=== PATIENT | male | born 1950 | race Caucasian/White ===

== ENCOUNTER 2016-05-28 21:31 | Inpatient (IN) | payer OTHER ==
[~2016-05-28] VITALS: Ht 185.4 cm; Wt 183.2 kg
[~2016-05-28 21:31] MED LIST: ANDROGEL75 GM TD; ASPIRIN81 M2 PO; CLEOCIN150 MG PO; CLINDAMYCIN HC300 MG PO; COMPLETE MULTI1 EAC1 PO; FLOVENT DISKUS1 DIS2 IH; FOLIC ACID0.4 MG PO; Folic Acid PO; HORIZANT300 MG PO; HUMIRA40 MG/0.8 SQ; LEVAQUIN500 MG PO; LOPRESSOR50 MG PO; LYRICA150 MG PO; METHOTREXATE2.5 MG PO; PRAVACHOL40 MG PO; PRINIVIL20 MG PO; PROAIR HFA8.5 GM IH; Percocet 5/325,Endoc PO; Rocephin IV; Vitamin D PO; ZOLOFT100 MG PO
[2016-05-28 21:57] LABS: HEMATOCRIT 45.6 % (38.0-50.0); MCH 30.2 PG (29.0-34.0); MCHC 33.8 G/DL (30.0-36.0); MCV 89.4 FL (86-99); MEAN PLAT.VOLUME 10.7 uM^3 (9.0-12.4); PLATELET COUNT 275 K/uL (156-360); RBC DIS.WIDTH-CV 15.1 % (11.8-14.6); RBC DIS.WIDTH-SD 48.2 % (39-53); WHITE BLOOD COUNT 15.6 K/uL (4.1-10.2)
[2016-05-28 22:18] LABS: TROP-I INTERPRETATION NEGATIVE; TROPONIN-I < 0.01 ng/mL (0.0-0.30)
[2016-05-28 22:27] LABS: CREATININE 1.7 mg/dL (0.6-1.3); POTASSIUM 4.9 mEq/L (3.7-5.4)
[2016-05-28 22:35] LABS: CHLORIDE 103 mEq/L (99-109); POTASSIUM 5.5 mEq/L (3.7-5.4); SODIUM 141 mEq/L (136-147)
[2016-05-28 22:37] LABS: GLUCOSE 130 mg/dL (70-99)
[2016-05-28 22:39] LABS: ANION GAP 11 MEQ/L (2-14)
[2016-05-28 22:41] LABS: GFR ESTIMATE (CALCULATED) 38 mL/min/
[2016-05-28 22:42] LABS: UREA NITROGEN (BUN) 29 mg/dL (9-23)
[2016-05-28] MEDS ORDERED: ANDROGEL75 GM TD (22:43)
[2016-05-28] MEDS ORDERED: VITAMIN B-12500 MC5 PO (22:44)
[2016-05-28] MEDS ORDERED: PERCOCET 10/1 TABLET PO (22:44)
[2016-05-28] MEDS ORDERED: CYMBALTA60 MG PO (22:44)
[2016-05-28] MEDS ORDERED: LYRICA150 MG PO ×2 (22:44→22:45)
[2016-05-28] MEDS ORDERED: VITAMIN D31000 UNIT PO (22:45)
[2016-05-28] MEDS ORDERED: FLOMAX0.4 MG PO (22:45)
[2016-05-29 00:12] LABS: EOSINOPHIL COUNT 0.2 K/uL (0-0.3); IMMATURE GRANULOCYTE (%) 1.1 % (0.0-0.7); IMMATURE GRANULOCYTE COUNT 1.7 K/uL; LYMPHOCYTE COUNT 2.7 K/uL (1.0-2.8); MONOCYTE (%) 9.3 % (3-12); MONOCYTE COUNT 1.5 K/uL (0-0.8); NEUTROPHIL (%) 70.8 % (45-76)
[2016-05-29 02:21] VITALS: BP 140/71
[2016-05-29 06:40] LABS: GFR ESTIMATE (CALCULATED) 54 mL/min/
[2016-05-29 08:32] LABS: HEMATOCRIT 41.9 % (38.0-50.0); MCH 29.9 PG (29.0-34.0); MCHC 31.5 G/DL (30.0-36.0); RBC DIS.WIDTH-CV 15.2 % (11.8-14.6); RBC DIS.WIDTH-SD 52.1 % (39-53); RED BLOOD COUNT 4.42 M/uL (4.00-5.50); WHITE BLOOD COUNT 12.1 K/uL (4.1-10.2)
[2016-05-29 08:36] LABS: MCV 94.8 FL (86-99)
[2016-05-29 08:38] LABS: ANION GAP 9 MEQ/L (2-14); CHLORIDE 103 MEQ/L (99-109); GLUCOSE 121 mg/dL (70-99); POTASSIUM 4.9 MEQ/L (3.7-5.4); SODIUM 138 MEQ/L (136-147); UREA NITROGEN (BUN) 29 mg/dL (9-23)
[2016-05-29 09:10] VITALS: BP 119/58
[2016-05-29 11:46] VITALS: BP 119/64
[2016-05-29 11:48] LABS: PLATELET COUNT 186 K/uL (156-360)
[2016-05-29 15:25] VITALS: BP 129/63
[2016-05-29 19:18] VITALS: BP 131/61
[2016-05-29 20:20] LABS: ADD MIUA? NO; BILIRUBIN NEGATIVE; BLOOD NEGATIVE; COLOR YELLOW ((YELLOW)); GLUCOSE (STRIP) NEGATIVE; KETONES NEGATIVE; LEUKOCYTES NEGATIVE; NITRITE NEGATIVE; PROTEIN (STRIP) NEGATIVE; SPECIFIC GRAVITY 1.009 (1.000-1.030); UROBILINOGEN 0.2 MG/DL (0.2-1.0)
[2016-05-29 20:22] LABS: UCUL ADDED? NO
[2016-05-30] VITALS: BP 140/79
[2016-05-30 04:00] VITALS: BP 139/65
[2016-05-30 05:32] LABS: EOSINOPHIL (%) 2.2 % (0-5); EOSINOPHIL COUNT 0.2 K/uL (0-0.3); HEMATOCRIT 42.4 % (38.0-50.0); IMMATURE GRANULOCYTE COUNT 0.1 K/uL; LYMPHOCYTE COUNT 2.4 K/uL (1.0-2.8); MCH 30.6 PG (29.0-34.0); MCHC 32.8 G/DL (30.0-36.0); MCV 93.4 FL (86-99); MEAN PLAT.VOLUME 10.8 uM^3 (9.0-12.4); MONOCYTE (%) 10.8 % (3-12); MONOCYTE COUNT 1.1 K/uL (0-0.8); NEUTROPHIL (%) 61.3 % (45-76); PLATELET COUNT 160 K/uL (156-360); RBC DIS.WIDTH-CV 14.5 % (11.8-14.6); RBC DIS.WIDTH-SD 49.3 % (39-53); RED BLOOD COUNT 4.54 M/uL (4.00-5.50); WHITE BLOOD COUNT 9.9 K/uL (4.1-10.2)
[2016-05-30 06:05] LABS: ANION GAP 8 MEQ/L (2-14); CHLORIDE 102 MEQ/L (99-109); GFR ESTIMATE (CALCULATED) > 59 mL/min/; GLUCOSE 105 mg/dL (70-99); POTASSIUM 4.8 MEQ/L (3.7-5.4); SAMPLE HEMOLYSIS CHECK 0; SAMPLE ICTERIC CHECK 0; SAMPLE LIPEMIA CHECK 0; SODIUM 137 MEQ/L (136-147); UREA NITROGEN (BUN) 16 mg/dL (9-23)
[2016-05-30 07:40] VITALS: BP 152/74
[2016-05-30 11:39] VITALS: BP 110/57
[2016-05-30 15:37] VITALS: BP 118/52
[2016-05-30 19:38] VITALS: BP 106/63
[2016-05-30] MEDS ORDERED: SPIRIVA1 INHALATI IH (19:47)
[2016-05-31 00:37] VITALS: BP 140/63
[2016-05-31 04:54] VITALS: BP 146/79
[2016-05-31 08:37] VITALS: BP 161/77
[2016-05-31 10:19] VITALS: BP 128/64
[2016-05-31 10:21] VITALS: BP 139/68
[2016-05-31] MEDS ORDERED: PRINIVIL20 MG PO (11:15)
[2016-05-31] MEDS ORDERED: LOPRESSOR50 MG PO (11:15)
[2016-05-31] MEDS ORDERED: KEFLEX500 MG PO (11:18)
[2016-05-31] MEDS ORDERED: ATORVASTATIN CA40 MG PO (11:22)
[2016-05-31] MEDS ORDERED: BENADRYL25 MG PO (11:39)
[2016-05-31 12:53] VITALS: BP 139/69
== END 2016-05-31 13:02 | disposition home or self-care (01) | DRG 872 ==
LOC: EME 21:31 → EDOF 05-29 00:39 → 4EAST 05-29 02:09
PROVIDERS: Emergency Medicine; Hospitalist; Physician Assistant Medical
DX: A41.9 Sepsis, unspecified organism (principal); N17.9 Acute kidney failure, unspecified; Z68.42 Body mass index [BMI] 45.0-49.9, adult; E87.2 Acidosis; L03.116 Cellulitis of left lower limb; R65.20 Severe sepsis without septic shock; I95.9 Hypotension, unspecified; R55 Syncope and collapse; J44.9 Chronic obstructive pulmonary disease, unspecified; G47.33 Obstructive sleep apnea (adult) (pediatric); N40.0 Benign prostatic hyperplasia without lower urinary tract symptoms; M06.9 Rheumatoid arthritis, unspecified; I10 Essential (primary) hypertension; E78.5 Hyperlipidemia, unspecified; Z87.891 Personal history of nicotine dependence; M79.7 Fibromyalgia; G60.9 Hereditary and idiopathic neuropathy, unspecified; Z96.653 Presence of artificial knee joint, bilateral; L97.529 Non-pressure chronic ulcer of other part of left foot with unspecified severity; E66.01 Morbid (severe) obesity due to excess calories; E87.6 Hypokalemia; Z89.421 Acquired absence of other right toe(s)
CPT/HCPCS: 71275; 73630; 73720; 74177; 80047; 80048; 80202; 81003; 82565; 83605; 84484; 85025; 85027; 87040; 87070; 87075; 87205; 93005; 94640; 94640 76; 99281; 99285; J0692; J1650; J3370; J7030; J7040; J7050; J7120